=== PATIENT | female | born 1990 | race Asian ===

== ENCOUNTER 2016-07-07 21:15 | Inpatient (IN) | payer OTHER ==
[2016-07-07 22:02] VITALS: BMI 31.2
[2016-07-07] MEDS ORDERED: LACTATED RINGERS 1,000 ML IV PRN (22:12)
[2016-07-07] MEDS ORDERED: OXYTOCIN IN NS 334 ML IV PRN (22:12)
[2016-07-07] MEDS ORDERED: DIPHENHYDRAMINE HCL 50 MG CAPSULE PO PRN (22:36)
--- NOTE | 2016-07-07 23:04 | PCMAN ---
OB Admission Note - History : 4 Term: 2 : 0 Livin EDC:: 07/19/16 Gestational Age (weeks): 38 Days (#/7): 2 Admit Cervical Dilation:: 1 Admit Cervical Effacement (%):: 60 Admit Station:: -3 Admit Presentaton:: vertex Membrane Status: Ruptured Rupture (Date): 07/07/16 Rupture (Time): 01:00 Membranes Comment:: Clear liquid Contractions: Yes Contraction Frequency:: irregular Heart Rate:: 120 Status:: Cat 1 EFW:: 8lbs Summary of Course:: Perri arrived on the unit this evening at approx 21:30 for augmentation of labor after PROM at 01:00am today. She was triaged in clinic and noted to be grossly ruptured with positive nitrazine and ferning. Since she PROM'd she has not had any regular contractions. She remains afebrile, good movement and clear fluid. Plan is to now augment her labor, given she has been ruptured for 20 hours. The risks of infection were discussed with Perri and her and that it is recommended by 24 hours, or before, to start labor. They agree to the plan. Perri intiated her care at 14 weeks and was not seen until 25 weeks because she had to apply for OHP. She is dated by her period, and her anatomy UN at 24 weeks, gave her an SPRING of 07/26/16. She is rubella non-immune and GBS negative. Her 1 hr gtt was 134. Her OB hx is significant for her last baby being LGA at 11lbs. With her first she had a retained placental fragment at 2 weeks PP that required removal in the OR. - Labs Blood Type: B (+) positive Rubella Status: Non-immune GBS Status: Negative Abnormal Labs: None - Physical Exam General: Afebrile Psych/Mental Status: Mood/Affect Appropriate (Tired) Neurological: Grossly Intact, Alert Cardiovascular: Regular Rate and Rhythm Genitourinary: Normal Female Genitalia Rectal Exam: Deferred Extremities: Full ROM Skin: Normal Color, Warm, Dry - Problems (1) Premature rupture of membranes Qualifiers: PROM gestational age: full term Status: Acute Code: O42.90Assessment/ Plan: A/ Term at 38 weeks and 2 days PROM x 20 hrs with clear fluid Cat 1 FHR GBS neg P/ Cervical exam to establish baseline Initiate miso 50mcg, SL, Now and every 4 hours until regular uterine ctxs are noted IV access and labs Benadryl 50mf, PO, for sleep aid Diet as tolerated
[2016-07-07] MEDS ORDERED: MISOPROSTOL 25 MCG TABLET ONE (23:11)
[2016-07-07] MEDS ORDERED: LIDOCAINE 1% (PRES FREE) 30 ML VIAL ONE (23:11)
[2016-07-07] MEDS ORDERED: LIDOCAINE Viscous 2% 15 ML UDCUP ONE (23:11)
[2016-07-07] MEDS ORDERED: OXYTOCIN IN NS 500 ML IV ONE (23:11)
[2016-07-07] MEDS ORDERED: OXYTOCIN 10 UNITS/ML VIAL ONE (23:11)
[2016-07-07] MEDS ORDERED: MINERAL OIL 25 ML BOT ONE (23:11)
[2016-07-07] MEDS: MISOPROSTOL 25 MCG TABLET PO SCH (23:13)
[2016-07-07 23:16] LABS: HEMATOCRIT 36.5 % (37.0-47.0); HEMOGLOBIN 12.1 gm/l (12.0-16.0); MEAN CELL VOLUME 90.3 fl (81.0-99.0); MEAN CORPUSCULAR HGB CONC 33.2 g/dl (33.0-37.0)
[2016-07-07] MEDS ORDERED: DIPHENHYDRAMINE HCL 50 MG CAPSULE ONE (23:16)
[2016-07-08] MEDS: MISOPROSTOL 25 MCG TABLET PO SCH ×4 (03:30→21:11)
--- NOTE | 2016-07-08 10:34 | PDOC36 ---
Provider Note Subject: Hand off note - labor progress Note: S: Doing well - contractions are progressively becoming more painful, but still irregular. Hasn't gotten up yet this morning. O: VS: BP 109/66, HR 89, RR 16, T 36.6 C FHR: baseline 130, moderate variability, accels present, decels absent Ctx: Q 5-7 min SVE: deferred A: IUP @ 38w2d IOL for PROM Ruptured x 31 hrs, afebrile Category I FHR Not in labor s/p x2 doses miso (last @ 0330) P: Handoff from overnight CNM. Get up and walk around. Eat breakfast. Re-evaluate in 2-3 hrs or sooner as needed.
[2016-07-08] MEDS ORDERED: OXYTOCIN IN NS 500 ML IV PRN (10:35)
--- NOTE | 2016-07-08 10:35 | PDOC36 ---
Provider Note Subject: Labor progress Note: S: Feels contractions about every 5 minutes - still able to talk through them. O: VS: BP 112/71, HR 90, RR 16, T 98.6F FHR via IA: baseline 135, no decreases noted Ctx: Q 5 min, palpate mild to moderate SVE: deferred A: IUP @ 38w2d IOL for PROM Ruptured x 33.5 hrs, afebrile s/p miso x2 (last dose 0330) P: Start pitocin. Discussed risks and benefits. Patient agrees. Reassess in 2-3 hrs or sooner as indicated.
--- NOTE | 2016-07-08 15:28 | PDOC36 ---
Provider Note Subject: Labor progress note Note: S: Not really noticing contractions. Currently resting. O: VS: BP 109/69, HR 83, RR 18, T 36.7C FHR: baseline 135, moderate variability, accels present, rare variable decel Ctx: Q 4-6 min SVE: deferred Pitocin @ 1 mu/min A: IUP @ 38w2d IOL for PROM s/p miso x2 Pitocin (started at 1035) Rupture x 35 hrs, afebrile GBS neg Category II FHR without evidence of acidemia Not in labor P: Continue pitocin per protocol.
--- NOTE | 2016-07-08 15:29 | PDOC36 ---
Provider Note Subject: Labor progress note Note: S: Sleeping between contractions, woken up by contractions. Feels that they are somewhat more painful. Has been lying in bed - very sleepy, did not sleep well last night. O: VS: BP 107/64, HR 86, RR 18, T 36.4C FHR: baseline 130, moderate variability, accels present, occasional mild variable decel Ctx: Q 4-6 min SVE: deferred Pitocin @ 5mu/min A: IUP @ 38w2d IOL for PROM s/p miso x2 Pitocin Rupture x36.5 hrs, afebrile GBS neg Category II FHR without evidence of acidemia Not in labor P: Continue pitocin per protocol. Encouraged to ambulate.
[2016-07-08] MEDS ORDERED: FENTANYL 100 MCG/2 ML VIAL IV PRN (15:36)
[2016-07-08] MEDS ORDERED: MISOPROSTOL 200 MCG TABLET ONE (16:34)
[2016-07-08] MEDS ORDERED: MISOPROSTOL 200 MCG TABLET PO ONE (16:48)
[2016-07-08] MEDS ORDERED: LANOLIN 50 APPLIC/7G TUBE TP PRN (16:48)
[2016-07-08] MEDS ORDERED: MEASLES,MUMPS&RUBELLA VACCINE 0.5 ML VIAL SUB-Q V ONE (16:48)
[2016-07-08] MEDS ORDERED: DOCUSATE SODIUM 100 MG CAPSULE PO PRN (16:48)
[2016-07-08] MEDS ORDERED: BENZOCAINE/MENTHOL 60 APPLIC/BOT TP PRN (16:48)
[2016-07-08] MEDS ORDERED: CALCIUM CARBONATE 500 MG TAB.CHEW PO PRN (16:48)
[2016-07-08] MEDS ORDERED: ACETAMINOPHEN 325 MG TABLET PO PRN (16:48)
[2016-07-08] MEDS ORDERED: OXYTOCIN IN NS 167 ML IV PRN (16:48)
--- NOTE | 2016-07-08 17:04 | PDOC36 ---
Provider Note Subject: Labor progress note Note: Update since most recent note: Contractions are becoming more painful. Recommended Spinning [employer] 3 [employer] - instructed patient and on how to do these. Encouraged to rotate through these, walking, and resting.
--- NOTE | 2016-07-08 17:05 | PDOC36 ---
Provider Note Subject: labor progress note Note: Late entry due to patient care S: At 1530, the patient requested Fentanyl for pain management. Would like to try that and then get in the tub. O: VS:BP 104/69, HR 80, RR 18, T 99.8F FHR: baseline 135, moderate variability, accels present, decels absent Ctx: Q 3-5 min SVE: 6/90/-2 @ 1530 Pitocin @ 9 mu/min A: IUP @ 38w2d IOL for PROM s/p miso x2 Pitocin Rupture x, afebrile GBS neg Category I FHR Active labor Inadequate coping P: Continue pitocin per protocol. Administer Fentanyl and rest, then into the tub. Anticipate .
--- NOTE | 2016-07-08 17:08 | PCMDEL ---
Delivery Note - Labor 1st stage (hr/min):: 44 min 2nd stage (hr/min):: 2 min 3rd stage (hr/min):: 11 min Total (hr/min):: 57 min Pushed (hr/min):: 2 min - Delivery Delivery (Date): 07/08/16 Gender: Female Presentation: Cephalic Position: OA Umbilical Cord: 3 Vessel Delayed Cord Clamping:: > 3 min 1 Minute Total: 9 5 Minute Total: 9 Placenta:: Intact, Panchito EBL:: 250 Perineum:: Intact Length ROM:: 38 hrs, 46 min Comments:: Patient requested Fentanyl and at that time was found to be 6/90%/-2. When RN returned to room to administer, patient had spontaneous urge to push. Providers immediately called in as the head was . Baby delivered OA over an intact perineum with provider assistance. AMSTL administered. Bleeding initially normal with firm fundus. With fundal massage RN expressed large clot with brisk bleeding - misoprostol administered and bleeding has slowed. initiated within the first hour.
[2016-07-08] MEDS: IBUPROFEN 800 MG TABLET PO SCH ×2 (17:40→23:49)
[2016-07-09 07:11] LABS: HEMATOCRIT 30.3 % (37.0-47.0); HEMOGLOBIN 10.1 gm/l (12.0-16.0)
[2016-07-09] MEDS: IBUPROFEN 800 MG TABLET PO SCH ×3 (08:27→15:52)
[2016-07-09 14:20] VITALS: BP 106/62
[2016-07-09 16:21] LABS: HEMATOCRIT 32.7 % (37.0-47.0); HEMOGLOBIN 10.5 gm/l (12.0-16.0)
--- NOTE | 2016-07-09 17:51 | PDOC39B ---
Hospital Course: ADMIT DATE: 07/07/16 DISCHARGE DATE: 07/09/16 ADMISSION DIAGNOSES: PROM PROCEDURES: IOL, HISTORY OF PRESENT ILLNESS: 26 year old G4 T2 L2 at 38 weeks 3 days presenting with gross PROM. Achieved an . hemorrhage of approx 1, 000mL. HOSPITAL COURSE: By day of discharge the patient is ambulating, eating, voiding , and passing flatus without difficulty. Pain is controlled and lochia is appropriate. She is without difficulty. She denies fainting, dizziness on ambulation, headache, heart palpitations. She reports good social support. She requests an Rx for a breast pump. She would like to go home today if possible. - Physical Exam Vital Signs: Temp Pulse Resp BP Pulse Ox 97.7 F 76 18 106/62 07/09/16 14:00 07/09/16 14:00 07/09/16 14:00 07/09/16 14:00 General: Afebrile Psych/Mental Status: Mood/Affect Appropriate, Judgment/Insight Intact, Bonding Well Lungs: Clear to Auscultation Bilaterally Cardiovascular: Regular Rate and Rhythm Breast: Soft, Skin intact, Nipples Intact Fundus: Firm, Midline, Below Umbilicus Lochia: Light - Discharge Diagnosis (1) care and examination of lactating mother Status: AcuteAssessment/Plan: A: Day 1 without difficulty Lochia stable Mild anemia secondary to hemorrhage-vitals and labs stable P: hemorrhage: labs and vitals stable, reviewed bleeding precautions with pt Education: handout given and reviewed. Warning signs discussed. Rx: breast pump, colace, ibuprofen, ferrous sulfate Contraception: condoms and NFP Social: good social support from family Follow-up: 07/23/16 at 3pm in [place] - Discharge Plan Condition: Stable Disposition: Home Instruction Forms: Vaginal Discharge Instructions Additional Instructions: Congratulations on the of your daughter! You have a 2-week visit on Tuesday07/23/16 at 3:00pm in [place]. If you have any questions or concerns, or if you need to reschedule, please call the clinic at [phone]. Prescriptions: Docusate Sodium [COLACE 100 MG CAPSULE (SHF)] 100 mg PO DAILY PRN #30 cap PRN Reason: Constipation Ibuprofen [Motrin] 1 tab PO Q6H PRN #30 tablet PRN Reason: Pain FERROUS SULFATE (65 Fe) [IRON FERROUS SULFATE 325 MG TABLET (SHF)] 325 mg PO DAILY #30 tab
== END 2016-07-09 18:20 | disposition home or self-care (01) | DRG 774 ==
LOC: FBC 21:15 → EDSTATUS 07-19 20:32
PROVIDERS: ADMIT Advanced Practice Midwife; ATTEND Advanced Practice Midwife
PROC: 3E033VJ Introduction of Other Hormone into Peripheral Vein, Percutaneous Approach (ICD-10-PCS; 2016-07-07)
PROC: 10E0XZZ Delivery of Products of Conception, External Approach (ICD-10-PCS; principal; 2016-07-08)
DX: O42.92 Full-term premature rupture of membranes, unspecified as to length of time between rupture and onset of labor (principal); O72.1 Other immediate postpartum hemorrhage; O76 Abnormality in fetal heart rate and rhythm complicating labor and delivery; Z37.0 Single live birth; Z3A.38 38 weeks gestation of pregnancy; O09.43 Supervision of pregnancy with grand multiparity, third trimester